=== PATIENT | female | born 1930 | race Caucasian/White ===

== ENCOUNTER 2018-02-16 18:34 | Inpatient (IN) | payer MEDICARE ==
--- NOTE | 2018-02-16 19:08 | ED Physician Chart ---
ED Chief Complaint/HPI - Patient Information Date Seen:: 02/16/18 Time Seen:: 18:50 Chief Complaint:: ulcer left heel History of Present Illness:: Patient's had a left heel ulcer for the last 1 year for which she is here for evaluation. Allergies:: Allergies Allergy/AdvReac Type Severity Reaction Status Date / Time black pepper Allergy Verified 02/16/18 18:57 seeds Allergy Uncoded 02/16/18 18:57 Vitals:: Vital Signs - 8 hr 02/16/18 18:57 Temp 99 F HR 73 RR 18 BP 162/79 O2 Sat % 97 Historian:: Patient, Family Member Review:: Nurse's Note Reviewed ED Review of Systems - Review of Systems General/Constitutional: No fever, No chills Skin: Skin lesions Head: No headache Eyes: No loss of vision ENT: No earache Neck: No neck pain Cardio Vascular: No chest pain, No palpitations Pulmonary: No SOB GI: No nausea, No vomiting, No diarrhea G/U: No dysuria Musculoskeletal: No bone or joint pain Endocrine: No polyuria Psychiatric: Prior psych history Hematopoietic: No bruising Allergic/Immuno: No urticaria Neurological: No syncope, No focal symptoms ED Past Medical History - Past Medical History Past Medical History: HTN, PUD/GERD, Dementia, Other (irritable bowel syndrome; neuromuscular bladder dysfunction; post cancer; intervertebral disc degeneration thoracic lumbar region; status post urinary tract infection) Family History: None Social History: Non Smoker, No Alcohol, Care Facility Surgical History: Hysterectomy, other (bladder suspension; mastectomy) Psychiatricy History: Dementia ED Physical Exam - Physical Examination General/Constitutional: Well-developed, well-nourished, Alert, No distress Head: Atraumatic Eyes: Lids, conjuctiva normal, PERRL Other Skin comments:: 1 cm stage II decubitus posterior left heel with about 4 cm of adjacent erythema lateral left heel ENMT: External ears, nose nl, TM canals nl, Nasal exam nl, Lips, teeth, gums nl , Oropharynx nl, Tonsils nl Neck: No nuchal rigidity Respiratory: Nl effort/Exclusion, Clear to Auscultation, No Wheeze/Rhonchi/Rales Cardio Vascular: RRR, No murmur, gallop, rubs GI: No tenderness/rebounding/guarding, No organomegaly, No hernia Extremities: Normal digits & nails Other Extremities comments:: Left foot warm with strong dorsalis pedis pulse ED Labs/Radiology/EKG Results - Lab Results Results: Abnormal Lab Results 02/16/18 02/16/18 19:15 19:15 WBC 6.7 RBC 4.63 Hgb 13.3 Hct 39.6 L MCV 85.5 MCH 28.6 MCHC Differential 33.5 RDW 13.4 Plt Count 166 MPV 7.8 Neutrophils % 54.2 Lymphocytes % 31.2 Monocytes % 10.3 H Eosinophils % 3.6 Basophils % 0.7 Sodium 137 Potassium 3.9 Chloride 105 Carbon Dioxide 23.2 Anion Gap 12.7 BUN 15 Creatinine 0.9 Est GFR ( Amer) TNP Est GFR (Non-Af Amer) TNP BUN/Creatinine Ratio 16.7 Glucose 184 H Calcium 9.3 - Radiology Results Results: X-ray left heel negative for osteomyelitis ED Septic Shock - . Is Septic Shock (SBP<90, OR Lactate>4 mmol\L) present?: No - <6hrs of presentation: Vital Signs: Vital Signs - 8 hr 02/16/18 18:57 Temp 99 F HR 73 RR 18 BP 162/79 O2 Sat % 97 ED Reassessment (Disposition) - Reassessment Reassessment Condition:: Unchanged - Diagnosis Diagnosis:: Stage II ulcer posterior left heel with adjacent cellulitis; hyperglycemia - Aftercare/Follow up Instructions Aftercare/Follow-Up Instructions:: Refer to Discharge Instructions - Patient Disposition Discharge/Transfer:: Home Admitted to:: Med/Surg Spoke to:: Jaswant Morel Admitting Medical Physician:: Jaswant Morel Condition at Disposition:: Stable, Unchanged
[2018-02-16 19:23] LABS: % BASOPHILS 0.7 % (0.0-2.0); % EOSINOPHILS 3.6 % (0.0-5.0); % LYMPHOCYTES 31.2 % (20.0-50.0); % MONOCYTES 10.3 % (2.0-10.0); % NEUTROPHILS 54.2 % (40.0-80.0); EOSINOPHILE ABSOLUTE 0.2 Th/cmm (0.1-0.4); HEMATOCRIT 39.6 % (41.0-60); HEMOGLOBIN 13.3 gm/dL (12-16); LYMPHOCYTE ABSOLUTE 2.1 Th/cmm (1.5-3.0); MEAN CELL VOLUME 85.5 fl (81-100); MEAN CORPUSCULAR HEMOGLOBIN 28.6 pg (27.0-31.0); MEAN CORPUSCULAR HGB CONC 33.5 pg (28.0-36.0); MEAN PLATELET VOLUME 7.8 fl; MONOCYTE ABSOLUTE 0.7 Th/cmm (0.3-1.0); NEUTROPHILE ABSOLUTE 3.7 Th/cmm (1.8-8.0); PLATELET COUNT 166 Th/cmm (150-400); RED BLOOD COUNT 4.63 Mil/cmm (3.80-5.20); RED CELL DISTRIBUTION WIDTH 13.4 % (11.5-20.0); WHITE BLOOD COUNT 6.7 Th/cmm (4.8-10.8)
[2018-02-16 19:39] LABS: ANION GAP 12.7 (7.0-16.0); BUN - UREA NITROGEN 15 mg/dL (7-25); CALCIUM SERUM 9.3 mg/dL (8.6-10.3); CARBON DIOXIDE 23.2 mEq/L (21.0-31.0); CHLORIDE 105 mEq/L (98-107); CREATININE - SERUM 0.9 mg/dL (0.6-1.2); GLUCOSE 184 mg/dL (70-105); POTASSIUM SERUM 3.9 mEq/L (3.5-5.1); SODIUM SERUM 137 mEq/L (136-145)
[2018-02-16] MEDS ORDERED: Diphenoxylate/Atropine 2.5mg Tab PO PRN (22:15)
[2018-02-16] MEDS ORDERED: Hydrocodone/APAP 5mg/325mg Tab PO PRN (22:15)
[2018-02-16] MEDS ORDERED: POLYETHYLENE GLYCOL 3350 17 GM PACK PO PRN (22:15)
[2018-02-16] MEDS ORDERED: Non-Formulary Item 1 EA (Albuterol Sulfate [Proair Hfa] 2 PUFF) IH PRN (22:15)
[2018-02-16] MEDS ORDERED: DESONIDE TP PRN (22:15)
[2018-02-16] MEDS ORDERED: Albuterol Nebulizer 2.5mg/3mL HHN PRN (22:30)
[2018-02-16] MEDS ORDERED: D5-0.45NS 1,000 ML IV SCH (22:30)
[2018-02-16] MEDS: Ampicillin Sodium/Sulbactam 3 GM in Sodium Chloride 0.9% 100 ML IV SCH (22:53)
[2018-02-17 01:57] VITALS: BP 144/79
[2018-02-17] MEDS: Ampicillin Sodium/Sulbactam 3 GM in Sodium Chloride 0.9% 100 ML IV SCH ×3 (06:45→22:47)
[2018-02-17 06:50] LABS: % BASOPHILS 0.3 % (0.0-2.0); % EOSINOPHILS 3.1 % (0.0-5.0); % NEUTROPHILS 61.6 % (40.0-80.0); EOSINOPHILE ABSOLUTE 0.2 Th/cmm (0.1-0.4); HEMATOCRIT 39.6 % (41.0-60); HEMOGLOBIN 13.2 gm/dL (12-16); LYMPHOCYTE ABSOLUTE 1.6 Th/cmm (1.5-3.0); MEAN CORPUSCULAR HEMOGLOBIN 28.3 pg (27.0-31.0); MEAN CORPUSCULAR HGB CONC 33.3 pg (28.0-36.0); MEAN PLATELET VOLUME 8.4 fl; MONOCYTE ABSOLUTE 0.6 Th/cmm (0.3-1.0); NEUTROPHILE ABSOLUTE 3.9 Th/cmm (1.8-8.0); PLATELET COUNT 167 Th/cmm (150-400); RED BLOOD COUNT 4.66 Mil/cmm (3.80-5.20); RED CELL DISTRIBUTION WIDTH 13.2 % (11.5-20.0); WHITE BLOOD COUNT 6.3 Th/cmm (4.8-10.8)
[2018-02-17 06:56] LABS: ALB/GLOB RATIO 1.4 (1.0-1.8); ALBUMIN 3.7 gm/dL (3.7-5.3); ALKALINE PHOSPHATASE 135 U/L (34-104); ANION GAP 12.5 (7.0-16.0); BILIRUBIN,TOTAL 0.4 mg/dL (0.3-1.0); BUN - UREA NITROGEN 13 mg/dL (7-25); CALCIUM SERUM 9.3 mg/dL (8.6-10.3); CARBON DIOXIDE 26.2 mEq/L (21.0-31.0); CHLORIDE 106 mEq/L (98-107); CREATININE - SERUM 0.7 mg/dL (0.6-1.2); GLUCOSE 159 mg/dL (70-105); POTASSIUM SERUM 3.7 mEq/L (3.5-5.1); SGOT 25 U/L (13-39); SGPT/ALT 25 U/L (7-52); SODIUM SERUM 141 mEq/L (136-145); TOTAL PROTEIN,SERUM 6.4 gm/dL (6.0-8.3)
--- NOTE | 2018-02-17 08:16 | Diagnostic Imaging Report ---
Left heel/calcaneus (2 views) HISTORY: Swelling Generalized osteoporosis. No acute bony abnormalities. No fractures. No plain radiographic evidence of osteomyelitis. Spur formation seen off the plantar aspect of the posterior calcaneus. IMPRESSION: 1. No acute abnormalities. No definite plain radiographic evidence of osteomyelitis 2. Marked generalized osteoporosis 3. Calcaneal spur formation
[2018-02-17] MEDS ORDERED: AZELASTINE HCL NS SCH (09:00)
[2018-02-17] MEDS ORDERED: [UNRECOGNIZED DRUG - OTHER] PO SCH (09:00)
[2018-02-17] MEDS ORDERED: DICLOFENAC SODIUM TP SCH (09:00)
[2018-02-17] MEDS: Multivitamin Tab PO SCH (09:50)
[2018-02-17] MEDS: Vitamin B Complex w/Vitamin C Tab PO SCH (09:50)
[2018-02-17] MEDS: Vitamin D3 2,000 IU SGL PO SCH (09:50)
[2018-02-17] MEDS: Aspirin 81mg Chewable Tab PO SCH (09:50)
[2018-02-17] MEDS: Tolterodine Tartrate 4 mg ER Cap PO SCH (09:50)
[2018-02-17] MEDS: Fish Oil 1,000 MG SGL PO SCH (09:50)
[2018-02-17] MEDS: Pantoprazole 40 mg EC Tab PO SCH (09:51)
[2018-02-17] MEDS: Dicyclomine 10 mg Cap PO SCH ×2 (09:51→16:30)
[2018-02-17] MEDS ORDERED: VTE Chemical Prophylaxis Screen/Admission MC PRN (09:52)
[2018-02-17] MEDS ORDERED: Probiotic Screen MC PRN (12:35)
[2018-02-17 13:00] LABS: ESR SEDIMENTATION SED RATE 11 mm/hr (0-30)
[2018-02-17] MEDS ORDERED: Venelex 60gm Tube TP SCH (14:45)
[2018-02-17] MEDS: D5-0.45NS 1,000 ML IV SCH ×2 (16:37→21:02)
--- NOTE | 2018-02-17 17:03 | History & Physical ---
ADMIT DATE: 02/16/2018 CHIEF COMPLAINT: Left heel wound with infection. HISTORY OF PRESENT ILLNESS: This is an 79-year-old female with history of hypertension, breast cancer status post mastectomy, dementia, IBS, neurogenic bladder, admitted from [facility] secondary to nonhealing left heel ulceration. The patient was brought in the ER, noted to have cellulitis. The patient admitted for further management. PAST MEDICAL HISTORY: As mentioned in history of present illness. PAST SURGICAL HISTORY: Left breast mastectomy, gallbladder surgery and cataract surgery. ALLERGIES: Blood pressure medications, Tylenol, aspirin, atorvastatin, calcium, vitamin D, desonide, Voltaren, Bentyl, Lomotil, Aricept, fish oil, gabapentin, [place], ibuprofen, Isordil, loratadine, metoprolol, multivitamin, nitroglycerin, omeprazole, MiraLax, simethicone, vitamin B complex. FAMILY HISTORY: Noncontributory. SOCIAL HISTORY: The patient is a nonsmoker and nondrinker. Three children. REVIEW OF SYSTEMS: This is limited secondary to pain, comatose state. Most of the information got from the patient's daughter, Nimisha [phone]; met her in person. There is another daughter, Eli, who will be calling as well. PHYSICAL EXAMINATION: VITAL SIGNS: Blood pressure 130/79, respirations 18, and pulse 61, temperature 98.2. GENERAL: Elderly female, appears chronically ill. NECK: Supple. No mass. LUNGS: Equal breath sounds, few rhonchi. HEART: Regular rate and rhythm with systolic ejection murmur. ABDOMEN: Soft and globular. EXTREMITIES: Positive excoriations. Positive wound in the left heel stage 3 with slight erythema. LABORATORY DATA: WBC 6.3, hemoglobin 13, and platelets 167. BUN 13, creatinine 0.7, blood sugar 184. BNP 484. ASSESSMENT AND PLAN: Left heel ulcerations, peripheral vascular disease, hypertension, dementia, irritable bowel syndrome, neurogenic bladder, hypercholesterolemia, hypertension, diabetes, breast carcinoma. We will continue the patient on IV antibiotic. I will check the patient's sed rate. We will try to get information for his peripheral vascular disease. Continue with wound care. The patient's daughter stated that she has a curriculum and instruction specialist the patient is following, possible need for I and D per ____ request. We will continue with IV antibiotic for now ____ [facility]# [id number]
[2018-02-17] MEDS ORDERED: Atorvastatin Calcium 10 MG TAB PO SCH (21:00)
[2018-02-18] MEDS: Ampicillin Sodium/Sulbactam 3 GM in Sodium Chloride 0.9% 100 ML IV SCH (06:38)
[2018-02-18] MEDS ORDERED: Lactobacillus Rhamnosus GG 15 Billion CFU CAP.SPRINK PO SCH (09:00)
[2018-02-18] MEDS: Dicyclomine 10 mg Cap PO SCH ×2 (09:32→17:14)
[2018-02-18] MEDS: Fish Oil 1,000 MG SGL PO SCH (09:32)
[2018-02-18] MEDS: Tolterodine Tartrate 4 mg ER Cap PO SCH (09:32)
[2018-02-18] MEDS: Vitamin B Complex w/Vitamin C Tab PO SCH (09:32)
[2018-02-18] MEDS: Vitamin D3 2,000 IU SGL PO SCH (09:34)
[2018-02-18] MEDS: Multivitamin Tab PO SCH (09:35)
[2018-02-18] MEDS: Pantoprazole 40 mg EC Tab PO SCH (09:35)
[2018-02-18] MEDS: Aspirin 81mg Chewable Tab PO SCH (09:35)
--- NOTE | 2018-02-18 15:46 | Discharge Summary ---
DATE OF DISCHARGE: 02/18/2018 CHIEF COMPLAINT: Left heel nonhealing wound FINAL DIAGNOSIS: Nonhealing left wound on the left heel, peripheral vascular disease, hypertension, dementia, irritable bowel syndrome, neurogenic bladder, hyperglycemia, hypertension, diabetes, breast carcinoma. HISTORY: This is an 79-year-old female with history of hypertension, breast cancer as well as mastectomy, dementia, IBS, neurogenic bladder, admitted from board and care secondary to nonhealing left heel ulcerations. The patient was brought in the ER and admitted for further management. PHYSICAL EXAMINATION: VITAL SIGNS: Blood pressure 126/70, respirations 18, pulse 67. GENERAL: Elderly female, appears her stated age. NECK: Supple, no mass. LUNGS: Equal breath sounds, few rhonchi. HEART: Regular rate and rhythm without appreciable murmur. ABDOMEN: Soft, globular. EXTREMITIES: Positive excoriation years. NEUROLOGIC: Limited. HOSPITAL COURSE: The patient was admitted to telemetry and continue IV hydration and IV antibiotic initially on Unasyn. The patient was also referred to wound care. The patient's wound appeared to be a stage 2 without any purulent discharge. The patient to be switched to oral antibiotic. Family refused surgical debridement. CONDITION ON DISCHARGE: Fair. OVERALL PROGNOSIS: Poor. DISCHARGE INSTRUCTIONS: The patient to continue with current care with wound care. The patient will follow with her skin specialist. Case was discussed with two daughters. JOB# [id number]
[2018-02-18 17:07] LABS: FOLIC ACID >20.0 ng/mL (>3.0)
== END 2018-02-18 18:20 | disposition home or self-care (01) | DRG 593 ==
LOC: ER 18:34 → TELE 20:35
PROVIDERS: ADMIT Internal Medicine; ATTEND Internal Medicine
DX: L89.622 Pressure ulcer of left heel, stage 2 (principal); L03.116 Cellulitis of left lower limb; I10 Essential (primary) hypertension; K21.9 Gastro-esophageal reflux disease without esophagitis; F03.90 Unspecified dementia, unspecified severity, without behavioral disturbance, psychotic disturbance, mood disturbance, and anxiety; K58.9 Irritable bowel syndrome, unspecified; I73.9 Peripheral vascular disease, unspecified; N31.2 Flaccid neuropathic bladder, not elsewhere classified; E78.00 Pure hypercholesterolemia, unspecified; E11.65 Type 2 diabetes mellitus with hyperglycemia; S91.302A Unspecified open wound, left foot, initial encounter; X58.XXXA Exposure to other specified factors, initial encounter; Y93.89 Activity, other specified; Y92.89 Other specified places as the place of occurrence of the external cause; Y99.8 Other external cause status; Z90.710 Acquired absence of both cervix and uterus; Z85.3 Personal history of malignant neoplasm of breast; Z90.12 Acquired absence of left breast and nipple; Z88.8 Allergy status to other drugs, medicaments and biological substances; Z91.018 Allergy to other foods; Z53.29 Procedure and treatment not carried out because of patient's decision for other reasons
CPT/HCPCS: 36415-UA; 73650-TC-LT; 80048-TC; 80053-TC; 82607-90; 82746-90; 83036-90; 83880-TC; 85025-TC; 85652-TC; J0295; J1644; Z7610